=== PATIENT | male | born 1975 | race Caucasian/White ===

== ENCOUNTER 2019-01-12 12:53 | Inpatient (IN) ==
[2019-01-12] MEDS ORDERED: NS 1,000 ML IV ONE ×2 (13:18→16:25)
[2019-01-12] MEDS ORDERED: TORADOL IV ONE (13:19)
--- NOTE | 2019-01-12 13:21 | PROVIDER DOCUMENTATION ---
HPI-Male Problem - General Chief Complaint: UTI Symptoms Stated Complaint: FEVER/SWEATS/BODY ACHES Time Seen by Provider: 01/12/19 13:06 Source: patient, family () Allergies/Adverse Reactions: Patient Allergies Allergy/AdvReac Type Severity Reaction Status Date / Time No Known Allergies Allergy Verified 01/12/19 13:05 - History of Present Illness-Male Nature of Presenting Problem: Patient is a 43yo M who presents with complaints of fever/chills (Tmax 102.4), sweating, body aches, bladder pressure/burning, and decreased urinary output. Patient reports he saw his PCP 5 days ago with complaints of dysuria and low back pain. Reports his PCP prescribed Bactrim for which he has been taking. States 2 days ago, he began experiencing the fever/chills, sweating, and body aches. Reports he has been taking OTC Motrin for the fever. Denies history of kidney stones, abdominal pain, n/v/d, testicular pain/swelling, penile discharge, CP, or SOB. Location of Complaint: reports: suprapubic, urethral Radiation: reports: none Quality of Pain: reports: pressure Severity in ED: reports: moderate Onset/Duration: reports: 3 days ago (worse), 5 days ago (initial onset) Timing: reports: still present, getting worse Context/Activities at Onset: reports: none Urinary Symptoms: reports: dysuria, hesitancy, retention, urgency, low back pain Associated Symptoms: reports: none. denies: penile discharge, penile pain/swelling, pain/swelling in testicle Associated Symptoms: reports: back/neck pain, diaphoresis, fatigue, fever/chills , muscle aches, weakness. denies: chest pain, diarrhea, dizziness, nausea, vomiting Similar Symptoms Previously?: No Recently seen or treated by another doctor?: Yes (saw PCP on Thursday) Review of Systems - Adult - REVIEW OF SYSTEMS - ADULT Constitutional: reports: see HPI, chills, fever Eyes: reports: no symptoms reported Ears, Nose, Mouth & Throat: reports: no symptoms reported Cardiovascular: reports: no symptoms reported. denies: chest pain, palpitations Respiratory: reports: no symptoms reported. denies: cough, shortness of breath Gastrointestinal: reports: no symptoms reported. denies: abdominal pain, diarrhea, nausea, vomiting Genitourinary: reports: see HPI, dysuria, hesitency, urinary retention. denies: discharge Musculoskeletal: reports: see HPI, back pain, muscle aches. denies: neck pain Integumentary: reports: no symptoms reported Neurological: reports: no symptoms reported. denies: dizziness/vertigo, headache/migraines Psychiatric: reports: no symptoms reported Endocrine: reports: no symptoms reported Past History - Adult - PAST MEDICAL HISTORY-ADULT Review of Records: reports: Nursing Assessment Review, Medications Reviewed, Social history reviewed & non-contributory. - IMMUNIZATION STATUS Childhood Immunizations: See Nurse Assessment Flu Vaccine: See Nurse Assessment - FAMILY HISTORY Family History: reviewed, not pertinent - SOCIAL HISTORY Smoking: non-smoker Physical Exam-General - PHYSICAL EXAM-ADULT Initial Vital Signs Reviewed: Yes - CONSTITUTIONAL General Appearance: alert, mild distress. negative: lethargic, slow to respond, obtunded - EYES Eyes: PERRL/EOMI, pink conjunctivae. negative: EOM palsy, scleral icterus - HEAD, EARS, NOSE, MOUTH & THROAT HENMT: normocephalic/atraumatic, moist mucous membranes - NECK Neck: full range of motion, supple, normal inspection - RESPIRATORY Respiratory: chest non-tender, lungs clear, normal breath sounds, no pleuratic chest pain, no respiratory distress, no accessory muscle use. negative: crackles, rales, rhonchi, stridor, wheezing, retractions, splinting - CARDIOVASCULAR Cardiovascular: tachycardia (116) - GASTROINTESTINAL (ABDOMEN) Abdominal Exam: normal bowel sounds, non tender, soft. negative: distended, guarding, rigid, rebound, tenderness - GENITOURINARY Male Genitalia: deferred Rectal Exam: deferred - MUSCULOSKELETAL Back Exam: normal inspection, no CVA tenderness, no vertebral tenderness. negative: CVA tenderness, vertebral tenderness Extremity: normal range of motion, non-tender, normal gait, normal inspection, pelvis stable - SKIN Integumentary: normal color, diaphoresis. negative: cyanosis, jaundice, pallor - NEUROLOGIC Neurologic: grossly normal. negative: abnormal gait, aphasia, EOM palsy - PSYCHIATRIC Psych/Mental Status: normal mood/affect, normal thought content, normal thought process, oriented x 3 Progress - PLAN OF CARE/RESULTS Progress/Plan/Lab Results: Vital Signs - 8 hr 01/12/19 12:58 01/12/19 16:35 01/12/19 17:06 Temperature 99.1 F 103.3 F H 100.2 F H Pulse Rate 116 H 115 H Respiratory Rate 20 20 Blood Pressure 113/68 130/78 O2 Sat by Pulse Oximetry 98 98 01/12/19 17:25 Temperature 102.5 F H Pulse Rate Respiratory Rate Blood Pressure O2 Sat by Pulse Oximetry Laboratory Results - last 24 hr 01/12/19 01/12/19 01/12/19 13:20 13:20 13:20 WBC 4.18 L RBC 4.95 Hgb 15.4 Hct 43.7 MCV 88.3 MCH 31.1 H MCHC 35.2 RDW Std Deviation 12.6 Plt Count 120 L MPV 9.4 Immature Gran % (Auto) 0.2 Neut % (Auto) 81.0 H Lymph % (Auto) 7.4 L Payne % (Auto) 7.9 Eos % (Auto) 3.3 Baso % (Auto) 0.2 Immature Gran # (Auto) 0.01 Neut # (Auto) 3.38 Lymph # (Auto) 0.31 L Payne # (Auto) 0.33 Eos # (Auto) 0.14 Baso # (Auto) 0.01 PT INR PTT (Actin FS) Sodium 135 L Potassium 3.6 Chloride 96 L Carbon Dioxide 26 Anion Gap 14 BUN 13 Creatinine 1.5 H Estimated GFR/1.73 m2 51 BUN/Creatinine Ratio 9 Glucose 137 H Calculated Osmolality 272 Calcium 8.7 L Total Bilirubin 1.10 H AST 61 H ALT 67 H Alkaline Phosphatase 70 Total Protein 8.2 Albumin 4.8 Globulin 3.0 Albumin/Globulin Ratio 1.0 Plasma Lactate 1.2 Urine Source Urine Color Urine Clarity Urine pH Ur Specific [place] Urine Protein Urine Ketones Urine Blood Urine Nitrite Urine Bilirubin Urine Urobilinogen Urine Microscopic RBC Urine WBC Urine Microscopic WBC Ur Epithelial Cells Urine Bacteria Urine Casts Urine Glucose Monoscreen Influenza A (Rapid) Influenza B (Rapid) 01/12/19 01/12/19 01/12/19 13:20 13:40 14:36 WBC RBC Hgb Hct MCV MCH MCHC RDW Std Deviation Plt Count MPV Immature Gran % (Auto) Neut % (Auto) Lymph % (Auto) Payne % (Auto) Eos % (Auto) Baso % (Auto) Immature Gran # (Auto) Neut # (Auto) Lymph # (Auto) Payne # (Auto) Eos # (Auto) Baso # (Auto) PT 13.3 INR 0.96 PTT (Actin FS) 34.7 Sodium Potassium Chloride Carbon Dioxide Anion Gap BUN Creatinine Estimated GFR/1.73 m2 BUN/Creatinine Ratio Glucose Calculated Osmolality Calcium Total Bilirubin AST ALT Alkaline Phosphatase Total Protein Albumin Globulin Albumin/Globulin Ratio Plasma Lactate Urine Source CLEAN CATCH Urine Color YELLOW Urine Clarity CLEAR Urine pH 6.5 Ur Specific [place] 1.020 Urine Protein 1+(30 mg/dL) A Urine Ketones 1+(Small) A Urine Blood 2+ A Urine Nitrite NEGATIVE Urine Bilirubin NEGATIVE Urine Urobilinogen 4 Urine Microscopic RBC <10 Urine WBC TRACE A Urine Microscopic WBC <10 Ur Epithelial Cells <10 Urine Bacteria NEGATIVE Urine Casts GRANULAR PRESENT Urine Glucose NEGATIVE Monoscreen NEGATIVE Influenza A (Rapid) Influenza B (Rapid) 01/12/19 01/12/19 16:50 16:50 WBC RBC Hgb Hct MCV MCH MCHC RDW Std Deviation Plt Count MPV Immature Gran % (Auto) Neut % (Auto) Lymph % (Auto) Payne % (Auto) Eos % (Auto) Baso % (Auto) Immature Gran # (Auto) Neut # (Auto) Lymph # (Auto) Payne # (Auto) Eos # (Auto) Baso # (Auto) PT INR PTT (Actin FS) Sodium Potassium Chloride Carbon Dioxide Anion Gap BUN Creatinine Estimated GFR/1.73 m2 BUN/Creatinine Ratio Glucose Calculated Osmolality Calcium Total Bilirubin AST ALT Alkaline Phosphatase Total Protein Albumin Globulin Albumin/Globulin Ratio Plasma Lactate 1.4 Urine Source Urine Color Urine Clarity Urine pH Ur Specific [place] Urine Protein Urine Ketones Urine Blood Urine Nitrite Urine Bilirubin Urine Urobilinogen Urine Microscopic RBC Urine WBC Urine Microscopic WBC Ur Epithelial Cells Urine Bacteria Urine Casts Urine Glucose Monoscreen Influenza A (Rapid) NEGATIVE Influenza B (Rapid) NEGATIVE Orders Category Date Time Status Bladder Scan and Record Result ORDERED Care 01/12/19 13:45 Active Cardiac Monitoring DIRECTED Care 01/12/19 17:36 Active IV Insertion ORDERED Care 01/12/19 17:36 Active Notify MD of + Sepsis Screen NOW Care 01/12/19 17:36 Active Notify Physician As Ordered Care 01/12/19 17:36 Active Repeat Vital Signs .Temp Care 01/12/19 16:14 Active Saline Loc NOW Care 01/12/19 13:06 Active Straight Catheterization ORDERED Care 01/12/19 14:33 Active CHEST-2 VIEWS [RAD] Stat Exams 01/12/19 16:[address] ABD/PELVIS W/IV CONT ONLY [CT] Stat Exams 01/12/19 14:32 Completed BLOOD CULTURE [BLDCUL] Stat Lab 01/12/19 13:30 Ordered CBC WITH DIFF [HEME] Routine Lab 01/13/19 06:00 Ordered CBC WITH ELECTRONIC DIFF [HEME] Stat Lab 01/12/19 13:20 Completed CK PROFILE [SP CHEM] Stat Lab 01/12/19 13:20 Received COMPREHENSIVE METABOLIC PANEL [CHEM] Stat Lab 01/12/19 13:[address] Stat Lab 01/12/19 16:50 Completed LACTATE, PLASMA [CHEM] Q3H Lab 01/12/19 19:50 Uncollected LACTATE, PLASMA [CHEM] Stat Lab 01/12/19 13:20 Completed LACTATE, PLASMA [CHEM] Stat Lab 01/12/19 16:50 Completed MONO SCREEN [SERO] Stat Lab 01/12/19 13:40 Completed PROTIME WITH INR [COAG] Stat Lab 01/12/19 13:20 Completed PTT [COAG] Stat Lab 01/12/19 13:20 Completed TROPONIN T Stat Lab 01/12/19 13:[address] W/POSS RFLX CULT [URINALYSIS] Stat Lab 01/12/19 14:36 Completed URINE CULTURE [RM] Routine Lab 01/12/19 15:30 Ordered 0.9% Sodium Chloride Inj [Ns] 1,000 ml Med 01/12/19 13:18 Discontinued IV 999 mls/hr 0.9% Sodium Chloride Inj [Ns] 1,000 ml Med 01/12/19 16:25 Discontinued IV 999 mls/hr Acetaminophen [Tylenol] Med 01/12/19 17:51 Discontinued 650 mg PO NOW ONE Acetaminophen [Tylenol] Med 01/12/19 17:28 Discontinued 650 mg CO NOW ONE Ibuprofen [Motrin] Med 01/12/19 16:37 Discontinued 600 mg PO NOW ONE Ketorolac [Toradol] Med 01/12/19 13:19 Discontinued 15 mg IV NOW ONE Morphine Med 01/12/19 14:38 Discontinued 4 mg IV NOW ONE Oxygen Device Stat Oth 01/12/19 17:36 Active Transfer/Admit Order [TRANSFER] Routine Transfer 01/12/19 17:46 Ordered Patient's temp in triage 99.1. Patient's temp [place] [address] shows splenomegaly and no urinary/renal abnormality. Will contact hospitalist for admission. Plan of care discussed and formulated in conjunction with Dr. Silva who also examined the patient. Result Diagrams: 01/12/19 13:20 01/12/19 13:20 - CHANGE OF SHIFT REPORT (ED Provider) 1 Report Given and Care Transferred to:: MD Ricardo Time of Transfer: 16:55 Items Pending: Labs, XRAY Results Departure - Departure Date of Disposition Decision: 01/12/19 Time of Disposition Decision: 17:40 DIAGNOSIS: Fever Qualifiers: Fever type: unspecified Qualified Code(s): R50.9 - Fever, unspecified Disposition: ADMITTED INPATIENT 09 Certified Medical Emergency: Emergent Condition: Good Referrals and Follow-Ups: Rosanne Pack MD [Primary Care Provider] - - Critical Care Note This patient required my direct & personal management of CC.: No Attestation - Physician/ JAHAIRA Attestation Patient care was provided by Advanced Practice Provider:: Yes Advanced Practice Provider:: Renuka Castellon Advanced Practice Provider documentation review:: The Mid-level provider documentation, treatment plan and medical decision making was reviewed by the physician who agrees with all treatment and medical decision making by the P. The physician spent face to face time with patient:: Yes (Ricardo) Advanced Practice Provider documentation review:: Supervising physician onsite and consulted in the evaluation and care of this patient. The physician did have a face to face encounter with the patient.
[2019-01-12 14:23] LABS: ALBUMIN 4.8 g/dL (3.5-5.0); CALCIUM 8.7 mg/dL (8.8-10.2); CREATININE 1.5 mg/dL (0.7-1.2); POTASSIUM 3.6 mmol/L (3.5-5.1); TOTAL BILIRUBIN 1.1 mg/dL (0.20-1.00); TOTAL PROTEIN 8.2 g/dL (6.3-8.3)
[2019-01-12] MEDS ORDERED: MORPHINE IV ONE (14:38)
[2019-01-12 15:10] LABS: BILIRUBIN URINE NEGATIVE (NEGATIVE); BLOOD URINE 2+ (NEGATIVE); CLARITY CLEAR (CLEAR); COLOR YELLOW; GLUCOSE URINE NEGATIVE (NEGATIVE); KETONE URINE 1+(Small) mg/dL (NEGATIVE); LEUKOCYTES URINE TRACE (NEGATIVE); NITRITE URINE NEGATIVE (NEGATIVE); PH URINE 6.5; PROTEIN URINE 1+(30 mg/dL) mg/dL (NEGATIVE); UROBILINOGEN URINE 4 mg/dL
[2019-01-12 15:30] LABS: URINE BACTERIA NEGATIVE /HFP; URINE CAST GRANULAR PRESENT /LPF; URINE EPITHELIAL CELLS <10 /HPF (<10); URINE RBC <10 /HPF (<10); URINE SOURCE CLEAN CATCH; URINE WBC <10 /HPF (<10)
--- NOTE | 2019-01-12 15:42 | Diag Imaging Result Doc PS360 ---
EXAM: CT ABD/PELVIS W/IV CONT ONLY HISTORY: pelvic pain; urinary retention TECHNIQUE: Routine with IV contrast. No enteric contrast. COMPARISON: 08/20/2016 FINDINGS: There are deep changes at the lung bases. There is hepatic steatosis. Splenomegaly with maximal AP dimension of 17 cm. This is new when compared with prior. No calcified gallstones. No biliary ductal dilatation. Pancreas, adrenal glands, and kidneys are unremarkable. Aorta is of normal caliber. No retroperitoneal or mesenteric lymphadenopathy. No hydronephrosis. No free air. Bowel is of normal caliber. Normal appendix. No free fluid. There is diverticulosis. No evidence for diverticulitis. Urinary bladder is grossly unremarkable by CT. Left inguinal lipoma versus small fat-containing hernia is unchanged. IMPRESSION: 1.New splenomegaly. 2.Hepatic steatosis. 3.Diverticulosis. No evidence for diverticulitis. This exam was performed using automated exposure control, adjustment of mA or kV according to patient size, and/or use of iterative reconstruction technique. Electronically signed by Lina Mcmanus 01/12/2019 3:40 PM
[2019-01-12 16:06] LABS: BASO# 0.01 X1000 (0.0-0.2); BASO% 0.2 % (0.0-0.8); EOS# 0.14 X1000 (0.0-0.7); EOS% 3.3 % (0.0-10.0); HEMATOCRIT 43.7 % (42.0-52.0); HEMOGLOBIN 15.4 g/dL (14.0-18.0); IMM GRAN# 0.01 X1000 (0.0-0.04); IMM GRAN% 0.2 % (0.0-0.5); LYMPH# 0.31 X1000 (1.2-3.4); LYMPH% 7.4 % (20.5-51.1); MCH 31.1 PG (27-31); MCHC 35.2 g/dL (33-37); MCV 88.3 FL (81-99); MONO# 0.33 X1000 (0.11-0.59); MONO% 7.9 % (1.7-9.3); MPV 9.4 FL (7.4-10.4); NEUT# 3.38 X1000 (1.4-6.5); PLT 120 X1000 (130-400); RBC 4.95 XMIL (4.7-6.1); RDW 12.6 % (11.5-14.5); WBC 4.18 X1000 (4.8-10.8)
[2019-01-12] MEDS ORDERED: MOTRIN PO ONE (16:37)
--- NOTE | 2019-01-12 17:15 | Diag Imaging Result Doc PS360 ---
EXAM: CHEST-2 VIEWS HISTORY: Lung base changes on CT TECHNIQUE: Chest two views COMPARISON: 01/01/2017 FINDINGS: The lungs are well expanded. The heart is not enlarged. The vessels are not distended. There are no infiltrates. No pleural effusions. IMPRESSION: No acute abnormality. Electronically signed by Edwar Fuller 01/12/2019 5:12 PM
[2019-01-12 17:19] LABS: INFLUENZA A NEGATIVE (NEGATIVE); INFLUENZA B NEGATIVE (NEGATIVE)
[2019-01-12] MEDS ORDERED: TYLENOL PR ONE (17:28)
[2019-01-12] MEDS ORDERED: TYLENOL PO ONE (17:51)
[2019-01-12 17:52] LABS: INR 0.96; PROTIME 13.3 Seconds (11.0-16.0)
[2019-01-12 17:53] LABS: PTT 34.7 Seconds (22.3-41.8)
--- NOTE | 2019-01-12 18:28 | HISTORY AND PHYSICAL ---
PRIMARY CARE PHYSICIAN: Rosanne Pack MD CHIEF COMPLAINT: Fever, chills, body aches, diaphoresis, bladder pressure, burning, and decreased urinary output that have been present for the past 5 days and progressively worsening. HISTORY OF PRESENTING ILLNESS: This is a 43-year-old male, who presents to [facility] ER with complaints of fever, chills, sweating, body aches, bladder pressure, burning, and a decreased urinary output. States that he saw his primary care physician 5 days ago this past Thursday for complaints of urinary symptoms of bladder pressure, urgency, frequency, and dysuria with a decreased urinary output. States that his urine in the primary care physician's office was negative, but she went ahead and put him on some Bactrim, and he has been taking that. States for the past 2 days his fevers have been worse, chills, sweating, and the body aches have worsened. He denied any abdominal pain, testicular pain, any penile discharge, nausea/vomiting, diarrhea, chest pain, or shortness of breath. His workup showed when he arrived he had a temperature of 99.1 degrees. Approximately 3 to 3-1/2 hours later, his temperature went up to 103.3, and currently it is 102.5. His white blood cell count is 4.18. His sodium is 135, creatinine of 1.5, total bilirubin of 1.10, AST of 61, ALT 67. Plasma lactate was normal x2 sets. Urinalysis was normal. Mononucleosis screen was negative. Influenza A and B were both negative. We did a chest x-ray that showed no acute abnormality. We did a CT of the abdomen and pelvis that shows a new splenomegaly compared to 08/20/2016, hepatic steatosis, and diverticulosis so he will be admitted for further evaluation and treatment. PAST MEDICAL HISTORY: None. PAST SURGICAL HISTORY: None. FAMILY HISTORY: Reviewed and noncontributory. SOCIAL HISTORY: He currently lives with family. Denies any tobacco, alcohol, or illicit drug use. ALLERGIES: He has no known drug allergies. HOME MEDICATIONS: He does not take any medications on a routine basis. REVIEW OF SYSTEMS: He was positive for a fever, chills. Denied any blurred vision or dizziness. He has had diaphoresis. Denied any chest pain, coughing, shortness of breath. Denied any abdominal pain, constipation, or diarrhea. He did have some frequency urgency, difficulty urinating, pressure with urination. PHYSICAL EXAMINATION: VITAL SIGNS: On arrival he had a temperature of 99.1 degrees, pulse was 116, respirations 20, blood pressure 113/68, saturating 98% on room air. Approximately 3-1/2 hours after arriving to the emergency room, his temperature went up to 103.3. He was given ibuprofen and it came down to 100.2, and about 30 minutes ago, it went back up to 102.5 and a heart rate in the 140s. GENERAL: This is a 43-year-old male, who is lying in the bed. Answers questions appropriately. HEMNT: Normocephalic, atraumatic. Normal ENT inspection. Oropharynx and nares are clear. EYES: Pupils are equal, round, and reactive to light and accommodation. Extraocular movements are intact. NECK: Normal inspection. Normal range of motion. LUNGS: Clear to auscultation bilaterally with equal lung expansion and chest wall movement. HEART: With sinus tachycardia, came in at 116, has now gone up to 140, but no murmurs, rubs, or gallops are noted. ABDOMEN: Soft, nontender, nondistended. Bowel sounds are present x4 quadrants. MUSCULOSKELETAL: He has 5/5 strength x4 extremities. NEUROLOGICAL: The cranial nerves 2-12 appear grossly intact. ASSESSMENT: 1. Fever of unknown origin. 2. Sepsis. 3. Elevated liver function tests. 4. Acute kidney injury. PLAN: He has been admitted to the medical unit, placed on telemetry. We are going to check a peripheral smear, EBV, CMP, LDH, ESR, PT/INR. His CK and troponin are pending. We will send blood cultures x2. Urine culture is pending. We will place him on normal saline at 125. Place him on vancomycin per protocol. Tylenol, Zofran 4 mg IV q.4 h. p.r.n. Recheck CBC, CMP in the a.m. and we will check an ultrasound of the abdomen complete in the a.m. and he will be n.p.o. after midnight. Further orders after seen by attending. Dictated by CHASE Haas for Jovanny Ashford MD cc: Makayla JimmyCHASE bernal MD Lindsay E. Smith, MD
[2019-01-12] MEDS ORDERED: VANCOMYCIN IV PER PHARMACY MISC SCH (19:05)
[2019-01-12] MEDS ORDERED: ZOFRAN IV PRN (19:05)
[2019-01-12] MEDS: NS 1,000 ML IV SCH (19:29)
[2019-01-12] MEDS ORDERED: VANCOMYCIN 2,000 MG in NS 500 ML IV ONE (20:00)
[2019-01-12] MEDS: TYLENOL PO PRN (22:51)
[2019-01-13] MEDS: NS 1,000 ML IV SCH ×2 (05:14→14:38)
[2019-01-13] MEDS: TYLENOL PO PRN (05:14)
[2019-01-13 05:38] LABS: BASO# 0.01 X1000 (0.0-0.2); BASO% 0.4 % (0.0-0.8); EOS# 0.13 X1000 (0.0-0.7); EOS% 5.2 % (0.0-10.0); HEMATOCRIT 36.2 % (42.0-52.0); HEMOGLOBIN 12.6 g/dL (14.0-18.0); LYMPH# 0.49 X1000 (1.2-3.4); LYMPH% 19.7 % (20.5-51.1); MCH 31.4 PG (27-31); MCHC 34.8 g/dL (33-37); MCV 90.3 FL (81-99); MONO# 0.28 X1000 (0.11-0.59); MONO% 11.2 % (1.7-9.3); MPV 9.5 FL (7.4-10.4); NEUT# 1.58 X1000 (1.4-6.5); NEUT% 63.5 % (42.2-75.2); PLT 97 X1000 (130-400); RBC 4.01 XMIL (4.7-6.1); RDW 12.5 % (11.5-14.5); WBC 2.49 X1000 (4.8-10.8)
[2019-01-13 05:52] LABS: AGAP 10; ALBUMIN 3.6 g/dL (3.5-5.0); ALKALINE PHOSPHATASE 61 U/L (32-122); BUN 11 mg/dL (8-22); CALCIUM 7.6 mg/dL (8.8-10.2); CHLORIDE 102 mmol/L (98-107); COSMO 274; CREATININE 1.2 mg/dL (0.7-1.2); ESTIMATED GFR > 60; GLUCOSE 141 mg/dL (70-104); GOT 69 U/L (10-34); GPT 62 U/L (10-44); POTASSIUM 3.7 mmol/L (3.5-5.1); SODIUM 136 mmol/L (136-145); TCO2 24 mmol/L (25-35); TOTAL PROTEIN 6.2 g/dL (6.3-8.3)
[2019-01-13] MEDS: NORCO-5 PO PRN ×3 (09:46→22:02)
--- NOTE | 2019-01-13 14:37 | Diag Imaging Result Doc PS360 ---
EXAM: MRI BRAIN W/WO CONTRAST INDICATION: headache/fever - rule out infection COMPARISON: None. FINDINGS: There is no evidence of acute infarct. The deep white matter signal is unremarkable. There is no discrete intracranial mass, mass effect, or intracranial hemorrhage. There is no evidence of abnormal intracranial enhancement. There is mild sphenoid sinus mucosal thickening. Surrounding soft tissues and bony structures are essentially unremarkable, otherwise. IMPRESSION: Mild sphenoid sinus mucosal disease. No evidence of acute intracranial pathology. Electronically signed by Sai Lea 01/13/2019 2:35 PM
--- NOTE | 2019-01-13 15:47 | Diag Imaging Result Doc PS360 ---
EXAM: US ABDOMEN-COMPLETE INDICATION: Elevated LFT, Splenomegaly COMPARISON: None. FINDINGS: The gallbladder appears normal with no stones, wall thickening, or pericholecystic fluid. The common bile duct is normal in diameter. Sonographic Poole's sign was reported to be negative. The liver echotexture is somewhat increased diffusely suggesting hepatic steatosis. No discrete hepatic mass is identified. Portal venous flow is hepatopetal. Much of the pancreas is obscured by bowel gas. The visualized portion is unremarkable. The aorta and IVC are grossly unremarkable. The spleen is prominent measuring up to 14.8 x 14.8 x 5.3 cm. The kidneys are grossly unremarkable. IMPRESSION: 1.Suggestion of hepatic steatosis. 2.Mild splenomegaly. Electronically signed by Sai Lea 01/13/2019 3:45 PM
--- NOTE | 2019-01-13 19:17 | PROGRESS NOTE ---
DATE: 01/13/2019 SUBJECTIVE: The patient notes he feels a little bit better this morning. Still having a headache. Denies any neck pain. Denies any pain when he moves his head from [id number]. He slept a little better last night. OBJECTIVE: Vital signs: T-max 103.3 degrees, T-current 100, pulse 100, BP 100/63. General: Patient is pleasant. He is in no distress. He has no nuchal rigidity. HEENT: Normocephalic. Neck: Supple. CV: Mild tachycardia. No murmurs. Chest: Clear, nonlabored. No crackles. No wheezing. Abdomen: Soft, nontender. Extremities: Moves all extremities. Neurologic: No focal changes. Patient is awake, alert, oriented. ASSESSMENT: 1. Febrile illness. PPD and PMV are still pending. 2. Sepsis. 3. Elevated liver function tests. 4. Acute kidney injury, resolved. 5. Headache. PLAN: Continue the patient in the hospital. Continue antibiotics. Only certainly, it appears though he may have a viral illness. We are going to check an MRI to rule out any pathology there. Further orders as needed. cc: Jovanny Ashford MD
[2019-01-13] MEDS ORDERED: VANCOMYCIN 1,500 MG in NS 250 ML IV SCH (20:00)
[2019-01-13] MEDS: PEPCID PO SCH (20:17)
[2019-01-14] MEDS: NS 1,000 ML IV SCH ×4 (00:25→19:21)
[2019-01-14 06:37] LABS: HEMATOCRIT 34.6 % (42.0-52.0); HEMOGLOBIN 11.6 g/dL (14.0-18.0); MCH 30.2 PG (27-31); MCHC 33.5 g/dL (33-37); MCV 90.1 FL (81-99); RBC 3.84 XMIL (4.7-6.1); RDW 12.5 % (11.5-14.5); WBC 1.99 X1000 (4.8-10.8)
[2019-01-14 06:55] LABS: AGAP 11; ALBUMIN 3.4 g/dL (3.5-5.0); ALKALINE PHOSPHATASE 53 U/L (32-122); BUN 6 mg/dL (8-22); CALCIUM 7.3 mg/dL (8.8-10.2); CHLORIDE 101 mmol/L (98-107); COSMO 272; CREATININE 0.9 mg/dL (0.7-1.2); ESTIMATED GFR > 60; GLUCOSE 117 mg/dL (70-104); GOT 54 U/L (10-34); GPT 49 U/L (10-44); POTASSIUM 3.3 mmol/L (3.5-5.1); SODIUM 137 mmol/L (136-145); TCO2 24 mmol/L (25-35); TOTAL PROTEIN 5.9 g/dL (6.3-8.3)
[2019-01-14] MEDS: PEPCID PO SCH ×2 (08:48→20:53)
[2019-01-14] MEDS: NORCO-5 PO PRN (08:48)
[2019-01-14] MEDS: VANCOMYCIN 1,500 MG in NS 250 ML IV SCH ×2 (08:49→20:53)
[2019-01-14] MEDS ORDERED: SYNTHROID PO SCH (09:00)
[2019-01-14 09:26] LABS: BASO# 0.04 X1000 (0.0-0.2); BASO% 1.9 % (0.0-0.8); EOS# 0.14 X1000 (0.0-0.7); EOS% 6.5 % (0.0-10.0); HEMATOCRIT 34.8 % (42.0-52.0); HEMOGLOBIN 11.8 g/dL (14.0-18.0); LYMPH# 0.71 X1000 (1.2-3.4); LYMPH% 32.9 % (20.5-51.1); MCH 30.5 PG (27-31); MCHC 33.9 g/dL (33-37); MCV 89.9 FL (81-99); MONO# 0.27 X1000 (0.11-0.59); MONO% 12.5 % (1.7-9.3); MPV 9.3 FL (7.4-10.4); NEUT% 46.2 % (42.2-75.2); PLT 91 X1000 (130-400); RBC 3.87 XMIL (4.7-6.1); RDW 12.4 % (11.5-14.5); WBC 2.16 X1000 (4.8-10.8)
[2019-01-14 10:02] LABS: ANISOCYTOSIS 1+; BANDS 4 % (0-1); EOS 7 % (1-10); LYMPHS 25 % (21-51); MONO 8 % (1-9); SEGS 56 % (42-75)
[2019-01-14] MEDS ORDERED: ZOSYN 3.375 GM in NS 50 ML IV SCH (14:00)
[2019-01-14] MEDS: ZOSYN 3.375 GM in NS 50 ML IV SCH (20:53)
[2019-01-14 21:44] LABS: HIV ANTIBODY SCREEN SEE COMMENTS
--- NOTE | 2019-01-14 22:42 | PROGRESS NOTE ---
DATE: 01/14/2019 SUBJECTIVE: Patient denies any neck stiffness or increased headaches with neck movement. He does have a headache, although he notes that it is better than yesterday. Denies any cough, congestion, shortness of breath. Denies any abdominal pain although his does note that he has had some abdominal pain off and on for the past several months. She is extremely concerned that he may have gallbladder disease because she had pain on her left side for approximately 4 years prior to being diagnosed with gallbladder disease. She notes that all of her gallbladder tests were negative several times including a HIDA scan and eventually she had her gallbladder removed despite all of her tests being normal and her left-sided pain disappeared. PHYSICAL EXAMINATION: Vital Signs: Temperature max 101.1 degrees, temperature current 99.5, pulse 94, BP 105/66. General: Patient is very pleasant. He is in no distress. He does laugh at times on exam. Does note that he did not feel normal. Denies any vision change. Denies any focalized weakness. HEENT: Normocephalic. Neck: Supple. Full neck motion without any increase in his symptoms. Cardiovascular: Regular rate. Chest: Clear and nonlabored. Abdomen: Soft. No fluid wave. No guarding. No rebound. Nontender. Positive bowel sounds. Extremities: Moves all extremities. Neurologic: No changes. ASSESSMENT: 1. Febrile illness. 2. Leukocytosis. 3. History of abdominal pain although currently does not appear to be having abdominal pain. 4. Splenomegaly. PLAN: We will continue patient in the hospital although I expect that this is viral as does our Infectious Disease, Dr. Duff. We will continue symptomatic care. Discussed with him and the that although she had left-sided pain with her gallbladder disease it is extremely rare and typically as the average individual would have right-sided pain with nausea with eating. Discussed with her that it would be highly unlikely that his gallbladder has ruptured with him having a completely nontoxic appearance and a benign abdominal exam. We are going to continue to follow. Further orders as needed. cc: Jovanny Ashford MD
[2019-01-15] MEDS: ZOSYN 3.375 GM in NS 50 ML IV SCH ×2 (02:43→10:15)
[2019-01-15] MEDS: NS 1,000 ML IV SCH ×2 (06:30→13:44)
[2019-01-15] MEDS ORDERED: SYNTHROID PO SCH (07:00)
[2019-01-15 08:58] LABS: BASO# 0.05 X1000 (0.0-0.2); BASO% 1.9 % (0.0-0.8); EOS# 0.17 X1000 (0.0-0.7); EOS% 6.4 % (0.0-10.0); HEMATOCRIT 35.1 % (42.0-52.0); HEMOGLOBIN 11.9 g/dL (14.0-18.0); LYMPH# 1.04 X1000 (1.2-3.4); LYMPH% 39.2 % (20.5-51.1); MCH 30.4 PG (27-31); MCHC 33.9 g/dL (33-37); MCV 89.5 FL (81-99); MONO# 0.39 X1000 (0.11-0.59); MONO% 14.7 % (1.7-9.3); MPV 9.4 FL (7.4-10.4); NEUT% 37.8 % (42.2-75.2); PLT 100 X1000 (130-400); RBC 3.92 XMIL (4.7-6.1); RDW 12.3 % (11.5-14.5); WBC 2.65 X1000 (4.8-10.8)
[2019-01-15] MEDS: PEPCID PO SCH (10:15)
[2019-01-15 12:10] VITALS: BP 129/84
[2019-01-15 12:35] LABS: HEPATITIS PROFILE ACUTE SEE COMMENTS
--- NOTE | 2019-01-15 19:36 | DISCHARGE SUMMARY ---
ADMISSION DATE: 01/12/2019 DISCHARGE DATE: 01/15/2019 PRIMARY CARE PHYSICIAN: Dr. Rosanne Pack. ADMISSION DIAGNOSES: 1. Fever of unknown origin. 2. Sepsis. 3. Elevated liver function tests. 4. Acute kidney injury. DISCHARGE DIAGNOSES: 1. Febrile illness. 2. Neutropenia. 3. New splenomegaly, mild. 4. History of abdominal pain, resolved. SUMMARY OF FINDINGS: This is a 43-year-old male who presented to the emergency room with complaints of fever, chills, sweating, body aches, bladder pressure and burning, and decreased urinary output. States that he had seen his primary caregiver 5 days prior to arriving to the ER for complaints of his urinary symptoms and was given an antibiotic of Bactrim even though his urinalysis, he stated, was negative. For the past 2 days prior to arriving his fever had been worse and chills, sweating, and body aches had worsened. When he arrived he had a temperature of 99.1 degrees, but approximately 3 hours later it went up to 103.1. At the time he was seen then it was 102.5. He had a white blood cell count of 4.18. He had some elevation in his LFTs at 61 and 67. Urinalysis was normal. Mononucleosis screening was negative. Influenza A and B were both negative. We did a chest x-ray that showed no acute abnormality. CT of the abdomen and pelvis showed a new splenomegaly compared to 08/20/2016. We admitted him to the intensive care unit. We did an abdomen ultrasound on 01/13/2019 that suggested hepatic steatosis and mild splenomegaly. We did a brain MRI on 01/13/2019 that showed mild sphenoid sinus mucosal disease, but no evidence of acute pathology. His temp has been trending down. His white blood cell count went down on day two to 2.49, day three 1.99, and is slowly trending back up to 2.65. We did discuss this case with Infectious Disease who certainly felt this appeared to be viral in nature, but we did check a CMV IgG and IgM that were both negative. We did a hepatitis panel that were all nonreactive. HIV screening was nonreactive. He feels much better today and it is felt that he can safely be discharged home today. DISCHARGE MEDICATIONS: He will continue his home medication of Synthroid 75 mcg p.o. daily. FOLLOWUP: He needs to follow up with his primary care physician in the next 1 to 2 weeks and with Infectious Disease in the next 1 to 2 weeks. All discharge instructions have been reviewed. He verbalizes understanding. TIME SPENT: This is a 35-minute discharge. Dictated by CHASE Haas for Jovanny Ashford MD cc: CHASE Haas MD Lindsay E. Smith, MD
--- NOTE | 2019-01-16 04:30 | DISCHARGE SUMMARY ---
ADMISSION DATE: 01/12/2019 DISCHARGE DATE: 01/15/2019 ADDENDUM: Patient seen and examined by myself. Full note dictated and discussed with nurse practitioner. On discharge, patient is awake, alert. He is in no distress. He did have a febrile illness with a temperature at 103 to 104 degrees. However, thankfully this trended down over the next several days. On discharge, he was greater than 24 hours afebrile. This was felt to be a viral reaction as his white count did drop to 1.7, is back up to 2.6. His lymphocytes dropped. They are also climbing back to normal. All cultures were normal. CT was normal. Chest x-ray was normal. Urine and urine culture were normal. All of his labs were negative. His EBV is actually still pending. Certainly expect this may be a mononucleosis type virus as he does have splenomegaly. He will follow up outpatient with Infectious Disease. cc: Jovanny Ashford MD
== END 2019-01-15 15:25 | disposition home or self-care (01) | DRG 866 ==
LOC: P.ED 12:53 → P.ICU 18:26 → P.MEDSURG 01-14 18:31
PROVIDERS: ATTEND Family Medicine